=== PATIENT | male | born 1955 | race Hispanic/Latino ===

== ENCOUNTER 2020-11-22 05:54 | Day surgery (SDC) | payer OTHER, MEDICARE ==
[2020-11-21 11:13] LABS: BASOPHILS % (AUTO) 0.4 % (0.0-5.0); EOSINOPHILS % (AUTO) 1.6 % (0.0-8.0); HEMATOCRIT 52.4 % (42-54); LYMPHOCYTES % (AUTO) 26.5 % (21.0-51.0); MEAN CORPUSCULAR HEMOGLOBIN 27.5 pg (27.0-33.0); MEAN CORPUSCULAR HGB CONC 31.7 g/dL (32.0-36.0); MEAN CORPUSCULAR VOLUME 86.8 fL (79-99); MONOCYTES % (AUTO) 5.9 % (3.0-13.0); NEUTROPHILS % (AUTO) 65.3 % (40.0-77.0); PLATELET COUNT (AUTO) 171 K/uL (130-400); RED BLOOD CELL COUNT(AUTO) 6.04 MIL/uL (4.50-6.20); WHITE BLOOD COUNT (AUTO) 9.6 K/uL (4.8-10.8)
[2020-11-21 11:19] LABS: APPEARANCE,URINE Clear (CLEAR); BILIRUBIN,URINE Negative (NEGATIVE); COLOR,URINE Yellow (YELLOW); GLUCOSE, URINE (UA) >=1000 mg/dL (NEGATIVE); KETONES,URINE Negative (NEGATIVE); LEUKOCYTE ESTERASE ,URINE Negative (NEGATIVE); NITRATE,URINE Negative (NEGATIVE); OCCULT BLOOD,URINE Small (NEGATIVE); PROTEIN,URINE 300 mg/dL (NEGATIVE)
[2020-11-21 11:23] LABS: CREATININE 1.9 mg/dL (0.5-1.5); POTASSIUM 4.8 mmol/L (3.5-5.1)
[2020-11-21 11:26] LABS: INR 1.2 (0.85-1.15); PROTHROMBIN TIME 12.9 SEC (9.6-11.6)
[2020-11-21 11:27] LABS: PARTIAL THROMBOPLASTIN TIME 32.6 SEC (26.3-35.5)
[2020-11-21 11:40] LABS: BACTERIA,URINE Few /HPF (None Seen); RBC,URINE 0-1 /HPF (0-1); WBC,URINE 0-1 /HPF (0-1)
[2020-11-21 13:41] VITALS: BP 150/85
[2020-11-22] VITALS (11 sets, daily range): BP systolic 111–128; BP diastolic 80–95
[~2020-11-22] VITALS: Ht 185.4 cm; Wt 103.1 kg
[2020-11-22] MEDS ORDERED: 0.9%NACL 1000ML 1,000 ML IV ONE (06:30)
[2020-11-22 06:48] LABS: POTASSIUM 3.5 mmol/L (3.5-5.1)
[2020-11-22] MEDS ORDERED: HEPARIN 10,000 UNIT/10ML (1,000 UNIT/ML) VIAL ONE (07:15)
[2020-11-22] MEDS ORDERED: NICARDIPINE 25MG INJ IV ONE (07:15)
[2020-11-22] MEDS ORDERED: NITROGLYCERIN 2 MG VIAL IV ONE (07:15)
[2020-11-22] MEDS ORDERED: MIDAZOLAM HCL 1 MG/ML 2ML VIAL ONE (07:16)
[2020-11-22] MEDS ORDERED: FENTANYL CITRATE PF 50 MCG/1 ML 2ML VIAL ONE (07:16)
[2020-11-22] MEDS ORDERED: IOHEXOL 350 MG/ML 100ML INFUS..BTL IV ONE (07:16)
[2020-11-22] MEDS ORDERED: LIDOCAINE HCL 400MG/20ML VIAL ONE (07:16)
[2020-11-22] MEDS ORDERED: APIX5TAB PO (07:23)
[2020-11-22] MEDS ORDERED: ROSU10TA28 PO (07:23)
[2020-11-22] MEDS ORDERED: METF-444 PO (07:23)
[2020-11-22] MEDS ORDERED: AEC81 PO (07:23)
[2020-11-22] MEDS ORDERED: BUME2TAB5 PO (07:23)
[2020-11-22] MEDS ORDERED: METO-409 PO (07:23)
[2020-11-22] MEDS ORDERED: DAPA10TA PO (07:23)
[2020-11-22] MEDS ORDERED: 0.9%NACL 1000ML 1,000 ML IV SCH ×2 (08:00→09:30)
[2020-11-22] MEDS ORDERED: IOHEXOL-350 50ML VIAL IV ONE (08:32)
== END 2020-11-22 13:45 | disposition home or self-care (01) ==
LOC: DAH 05:54
PROVIDERS: ATTEND Internal Medicine Cardiovascular Disease
DX: I21.4 Non-ST elevation (NSTEMI) myocardial infarction (principal); I25.119 Atherosclerotic heart disease of native coronary artery with unspecified angina pectoris; E11.22 Type 2 diabetes mellitus with diabetic chronic kidney disease; I13.0 Hypertensive heart and chronic kidney disease with heart failure and stage 1 through stage 4 chronic kidney disease, or unspecified chronic kidney disease; N18.30 Chronic kidney disease, stage 3 unspecified; I50.42 Chronic combined systolic (congestive) and diastolic (congestive) heart failure; E78.5 Hyperlipidemia, unspecified; I25.5 Ischemic cardiomyopathy; I48.19 Other persistent atrial fibrillation; Z79.01 Long term (current) use of anticoagulants; Z79.899 Other long term (current) drug therapy; Z98.890 Other specified postprocedural states; Z79.82 Long term (current) use of aspirin; Z79.84 Long term (current) use of oral hypoglycemic drugs; Z82.49 Family history of ischemic heart disease and other diseases of the circulatory system; Z86.73 Personal history of transient ischemic attack (TIA), and cerebral infarction without residual deficits; Z72.89 Other problems related to lifestyle
CPT/HCPCS: 36415 ×2; 71045; 80048 ×2; 81001; 82948 ×2; 85025; 85610; 85730; 93005; 93458; A4215; A4216; A4221; A4222; A4223 ×3; A4606; A4663; C1760; C1894 ×2; J1644; J2250; J3010; J3490 ×2; J7030; Q9965; Q9967 ×2; 99156; 99157

== ENCOUNTER 2021-09-07 09:08 | Inpatient (IN) | payer OTHER, MEDICARE ==
[~2021-09-07] VITALS: Ht 170.2 cm; Wt 102.0 kg
[~2021-09-07 09:08] MED LIST: APIX5TAB PO; BUME2TAB5 PO; DAPA10TA PO; ISOS30TA92 PO; METO-409 PO; PANT40GR PO; ROSU10TA28 PO
[2021-09-07 09:33] LABS: BASOPHILS % (AUTO) 0.6 % (0.0-5.0); EOSINOPHILS % (AUTO) 1.1 % (0.0-8.0); HEMATOCRIT 45.9 % (42-54); LYMPHOCYTES % (AUTO) 21.7 % (21.0-51.0); MEAN CORPUSCULAR HEMOGLOBIN 26.3 pg (27.0-33.0); MEAN CORPUSCULAR HGB CONC 30.9 g/dL (32.0-36.0); MEAN CORPUSCULAR VOLUME 85.2 fL (79-99); MONOCYTES % (AUTO) 7.9 % (3.0-13.0); NEUTROPHILS % (AUTO) 68.5 % (40.0-77.0); PLATELET COUNT (AUTO) 191 K/uL (130-400); RED BLOOD CELL COUNT(AUTO) 5.39 MIL/uL (4.50-6.20); WHITE BLOOD COUNT (AUTO) 6.6 K/uL (4.8-10.8)
[2021-09-07 09:42] LABS: CREATININE 1.7 mg/dL (0.5-1.5); POTASSIUM 3.7 mmol/L (3.5-5.1)
[2021-09-07 09:46] LABS: ALBUMIN 3.1 g/dL (3.5-5.0); MAGNESIUM 2.1 mg/dL (1.80-2.40); TOTAL PROTEIN, SERUM 7.7 g/dL (6.0-8.3)
[2021-09-07 09:56] LABS: B-TYPE NATRIURETIC PEPTIDE 1410 pg/mL (0-100)
[2021-09-07] MEDS: FUROSEMIDE 40MG VIAL IV SCH ×2 (11:05→12:06)
[2021-09-07] MEDS ORDERED: ONDANSETRON 4MG INJ IV PRN (12:00)
[2021-09-07] MEDS ORDERED: ACETAMINOPHEN 325 MG TAB PO PRN ×2 (12:00)
[2021-09-07] MEDS: DILTIAZEM 125 MG/25 ML INJ 125 MG in 0.9%NACL 100ML 100 ML IV SCH (12:06)
[2021-09-07] MEDS: CEFTRIAXONE 1G VIAL IV SCH ×2 (12:06→20:18)
[2021-09-07] MEDS: SPIRONOLACTONE 25 MG TAB PO SCH ×2 (12:13→20:18)
[2021-09-07] MEDS: FUROSEMIDE 20MG VIAL IV SCH ×2 (12:13→20:18)
[2021-09-07 16:50] VITALS: BP 123/75
[2021-09-07 20:00] VITALS: BP 118/77
[2021-09-08] VITALS (7 sets, daily range): BP systolic 119–136; BP diastolic 66–88
[2021-09-08] MEDS ORDERED: DIPHENHYDRAMINE HCL 25 MG CAPSULE PO ONE ×2 (01:00→23:30)
[2021-09-08] MEDS: DILTIAZEM 125 MG/25 ML INJ 125 MG in 0.9%NACL 100ML 100 ML IV SCH (05:37)
[2021-09-08 09:04] LABS: BASOPHILS % (AUTO) 0.1 % (0.0-5.0); EOSINOPHILS % (AUTO) 1.1 % (0.0-8.0); HEMATOCRIT 44.2 % (42-54); LYMPHOCYTES % (AUTO) 21.7 % (21.0-51.0); MEAN CORPUSCULAR HEMOGLOBIN 25.9 pg (27.0-33.0); MEAN CORPUSCULAR HGB CONC 30.3 g/dL (32.0-36.0); MEAN CORPUSCULAR VOLUME 85.3 fL (79-99); MONOCYTES % (AUTO) 6.9 % (3.0-13.0); NEUTROPHILS % (AUTO) 69.9 % (40.0-77.0); PLATELET COUNT (AUTO) 188 K/uL (130-400); RED BLOOD CELL COUNT(AUTO) 5.18 MIL/uL (4.50-6.20); RED CELL DISTRIBUTION WIDTH 18.7 % (11.0-15.5); WHITE BLOOD COUNT (AUTO) 7.3 K/uL (4.8-10.8)
[2021-09-08 09:22] LABS: ALBUMIN 3.1 g/dL (3.5-5.0); BILIRUBIN,TOTAL 2.5 mg/dL (0.2-1.0); CREATININE 1.7 mg/dL (0.5-1.5); MAGNESIUM 2.1 mg/dL (1.80-2.40); POTASSIUM 3.8 mmol/L (3.5-5.1); TOTAL PROTEIN, SERUM 7.7 g/dL (6.0-8.3)
[2021-09-08 09:24] LABS: INR 1.17 (0.85-1.15); PROTHROMBIN TIME 12.6 SEC (9.6-11.6)
[2021-09-08 09:25] LABS: PARTIAL THROMBOPLASTIN TIME 28.1 SEC (26.3-35.5)
[2021-09-08] MEDS: FUROSEMIDE 20MG VIAL IV SCH ×2 (09:34→21:10)
[2021-09-08] MEDS: CEFTRIAXONE 1G VIAL IV SCH ×2 (09:34→21:09)
[2021-09-08] MEDS: SPIRONOLACTONE 25 MG TAB PO SCH ×2 (09:34→21:10)
[2021-09-08] MEDS: LACTULOSE 20 GM/30 ML UDCUP PO SCH (17:20)
[2021-09-08] MEDS: ENOXAPARIN SODIUM 80 MG/0.8 ML SQ SCH (21:10)
[2021-09-09 03:10] VITALS: BP 134/88
[2021-09-09 06:45] LABS: BASOPHILS % (AUTO) 0.1 % (0.0-5.0); EOSINOPHILS % (AUTO) 0.8 % (0.0-8.0); HEMATOCRIT 44.9 % (42-54); LYMPHOCYTES % (AUTO) 21.1 % (21.0-51.0); MEAN CORPUSCULAR HEMOGLOBIN 26.1 pg (27.0-33.0); MEAN CORPUSCULAR VOLUME 84.4 fL (79-99); MONOCYTES % (AUTO) 7.6 % (3.0-13.0); NEUTROPHILS % (AUTO) 70.1 % (40.0-77.0); PLATELET COUNT (AUTO) 179 K/uL (130-400); RED BLOOD CELL COUNT(AUTO) 5.32 MIL/uL (4.50-6.20); WHITE BLOOD COUNT (AUTO) 7.7 K/uL (4.8-10.8)
[2021-09-09 07:20] LABS: ALBUMIN 3.1 g/dL (3.5-5.0); BILIRUBIN,TOTAL 2.3 mg/dL (0.2-1.0); CREATININE 1.6 mg/dL (0.5-1.5); MAGNESIUM 2.1 mg/dL (1.80-2.40); POTASSIUM 3.5 mmol/L (3.5-5.1); TOTAL PROTEIN, SERUM 7.8 g/dL (6.0-8.3)
[2021-09-09 08:00] VITALS: BP 138/89
[2021-09-09] MEDS: DILTIAZEM 125 MG/25 ML INJ 125 MG in 0.9%NACL 100ML 100 ML IV SCH (08:18)
[2021-09-09] MEDS ORDERED: POTASSIUM CHLORIDE 10MEQ SR TAB PO SCH (09:00)
[2021-09-09] MEDS: LACTULOSE 20 GM/30 ML UDCUP PO SCH (09:53)
[2021-09-09] MEDS: SPIRONOLACTONE 25 MG TAB PO SCH ×2 (09:54→21:55)
[2021-09-09] MEDS: FUROSEMIDE 20MG VIAL IV SCH ×3 (09:54→21:55)
[2021-09-09] MEDS: CEFTRIAXONE 1G VIAL IV SCH ×2 (09:54→21:55)
[2021-09-09] MEDS: ENOXAPARIN SODIUM 80 MG/0.8 ML SQ SCH ×2 (09:55→21:55)
[2021-09-09] MEDS: PANTOPRAZOLE 40 MG TAB DR PO SCH (09:58)
[2021-09-09 12:43] VITALS: BP 130/85
[2021-09-09 16:30] VITALS: BP 120/83
[2021-09-09] MEDS: METOPROLOL TARTRATE 50 MG TAB PO SCH ×2 (16:49→21:55)
[2021-09-09 19:28] VITALS: BP 110/66
[2021-09-09 23:07] VITALS: BP 126/81
[2021-09-10] MEDS: FUROSEMIDE 20MG VIAL IV SCH ×3 (00:30→16:30)
[2021-09-10] MEDS: METOPROLOL TARTRATE 50 MG TAB PO SCH ×4 (05:00→23:59)
[2021-09-10 07:53] VITALS: BP 119/76
[2021-09-10 08:46] LABS: CREATININE 1.9 mg/dL (0.5-1.5)
[2021-09-10] MEDS: SPIRONOLACTONE 25 MG TAB PO SCH ×2 (09:02→20:02)
[2021-09-10] MEDS: CEFTRIAXONE 1G VIAL IV SCH ×2 (09:02→20:02)
[2021-09-10] MEDS: PANTOPRAZOLE 40 MG TAB DR PO SCH (09:02)
[2021-09-10] MEDS: LACTULOSE 20 GM/30 ML UDCUP PO SCH (09:02)
[2021-09-10] MEDS: ENOXAPARIN SODIUM 80 MG/0.8 ML SQ SCH ×2 (09:03→20:02)
[2021-09-10 11:38] VITALS: BP 120/73
[2021-09-10 16:26] VITALS: BP 134/80
[2021-09-10 19:12] VITALS: BP 114/77
[2021-09-10] MEDS ORDERED: FUROSEMIDE 40 MG TABLET PO SCH (21:00)
[2021-09-10] MEDS ORDERED: VERAPAMIL HCL 80 MG TABLET PO SCH (21:00)
[2021-09-11 00:12] VITALS: BP 113/84
[2021-09-11 03:12] VITALS: BP 112/86
[2021-09-11 04:53] LABS: CREATININE 2.1 mg/dL (0.5-1.5)
[2021-09-11] MEDS: METOPROLOL TARTRATE 50 MG TAB PO SCH ×4 (05:39→23:51)
[2021-09-11] MEDS: PANTOPRAZOLE 40 MG TAB DR PO SCH (05:39)
[2021-09-11 07:00] VITALS: BP 111/71
[2021-09-11] MEDS: SPIRONOLACTONE 25 MG TAB PO SCH ×2 (09:49→20:35)
[2021-09-11] MEDS: LACTULOSE 20 GM/30 ML UDCUP PO SCH (09:49)
[2021-09-11] MEDS: CEFTRIAXONE 1G VIAL IV SCH ×2 (09:49→20:35)
[2021-09-11] MEDS: ENOXAPARIN SODIUM 80 MG/0.8 ML SQ SCH ×2 (09:50→20:35)
[2021-09-11 11:00] VITALS: BP 116/75
[2021-09-11 16:00] VITALS: BP 117/73
[2021-09-11 19:15] VITALS: BP 131/72
[2021-09-12 00:15] VITALS: BP 129/92
[2021-09-12 03:15] VITALS: BP 135/75
[2021-09-12 04:11] LABS: BASOPHILS % (AUTO) 0.7 % (0.0-5.0); EOSINOPHILS % (AUTO) 1.6 % (0.0-8.0); HEMATOCRIT 43.6 % (42-54); LYMPHOCYTES % (AUTO) 30.2 % (21.0-51.0); MEAN CORPUSCULAR HEMOGLOBIN 26.3 pg (27.0-33.0); MEAN CORPUSCULAR HGB CONC 31.4 g/dL (32.0-36.0); MEAN CORPUSCULAR VOLUME 83.7 fL (79-99); MONOCYTES % (AUTO) 9.7 % (3.0-13.0); NEUTROPHILS % (AUTO) 57.6 % (40.0-77.0); PLATELET COUNT (AUTO) 198 K/uL (130-400); RED BLOOD CELL COUNT(AUTO) 5.21 MIL/uL (4.50-6.20); RED CELL DISTRIBUTION WIDTH 19.5 % (11.0-15.5); WHITE BLOOD COUNT (AUTO) 6.1 K/uL (4.8-10.8)
[2021-09-12 04:49] LABS: BILIRUBIN,TOTAL 1.7 mg/dL (0.2-1.0); CREATININE 1.9 mg/dL (0.5-1.5); MAGNESIUM 2.1 mg/dL (1.80-2.40); PHOSPHORUS 3.9 mg/dL (2.5-4.9); POTASSIUM 4.1 mmol/L (3.5-5.1); TOTAL PROTEIN, SERUM 7.7 g/dL (6.0-8.3)
[2021-09-12 05:06] LABS: B-TYPE NATRIURETIC PEPTIDE 2080 pg/mL (0-100)
[2021-09-12] MEDS: METOPROLOL TARTRATE 50 MG TAB PO SCH ×2 (06:06→11:49)
[2021-09-12 08:00] VITALS: BP 145/74
[2021-09-12] MEDS ORDERED: SPIR25TA6 PO (08:29)
[2021-09-12] MEDS ORDERED: APIXABAN 5 MG TABLET PO SCH (09:00)
[2021-09-12] MEDS ORDERED: BUMETANIDE 1 MG TAB PO SCH (09:00)
[2021-09-12] MEDS ORDERED: SPIRONOLACTONE 25 MG TAB PO SCH (09:00)
[2021-09-12] MEDS: CEFTRIAXONE 1G VIAL IV SCH (09:28)
[2021-09-12] MEDS: PANTOPRAZOLE 40 MG TAB DR PO SCH (09:28)
[2021-09-12] MEDS: LACTULOSE 20 GM/30 ML UDCUP PO SCH (09:29)
[2021-09-12 12:00] VITALS: BP 141/92
== END 2021-09-12 14:22 | disposition home or self-care (01) | DRG 291 ==
LOC: EDH 09:08 → EDHIP 11:34 → 2AH 15:16 → 2DH 09-08 05:57
PROVIDERS: ADMIT Internal Medicine; ATTEND Internal Medicine
DX: I13.0 Hypertensive heart and chronic kidney disease with heart failure and stage 1 through stage 4 chronic kidney disease, or unspecified chronic kidney disease (principal); I50.43 Acute on chronic combined systolic (congestive) and diastolic (congestive) heart failure; J96.01 Acute respiratory failure with hypoxia; I48.19 Other persistent atrial fibrillation; D68.59 Other primary thrombophilia; I25.10 Atherosclerotic heart disease of native coronary artery without angina pectoris; E11.22 Type 2 diabetes mellitus with diabetic chronic kidney disease; E78.5 Hyperlipidemia, unspecified; N18.30 Chronic kidney disease, stage 3 unspecified; I25.2 Old myocardial infarction; Z86.73 Personal history of transient ischemic attack (TIA), and cerebral infarction without residual deficits; Z79.01 Long term (current) use of anticoagulants; F17.210 Nicotine dependence, cigarettes, uncomplicated; I25.5 Ischemic cardiomyopathy; K70.30 Alcoholic cirrhosis of liver without ascites; I07.1 Rheumatic tricuspid insufficiency
CPT/HCPCS: 36415; 71045; 76700; 80048; 80053; 82550; 82948; 83735; 83880; 84100; 84484; 85025; 85610; 85730; 93005; G0378; J0696; J1650; J1940; J3490; Q0163